=== PATIENT | female | born 1945 | race Caucasian/White ===

== ENCOUNTER 2017-08-06 07:17 | Day surgery (SDC) | payer MEDICARE ==
[2017-08-06] MEDS: LR 1,000 ML IV (07:57)
[2017-08-06] MEDS ORDERED: fentaNYL 100 MCG/2 ML INJECTION (J3010) As Ordered (08:47)
[2017-08-06] MEDS ORDERED: LIDOCAINE 2% INJ 100 MG/5 ML SDV (FOR ANES.) As Ordered (08:47)
[2017-08-06] MEDS ORDERED: MIDAZOLAM INJ 2 MG/2 ML VIAL (J2250) As Ordered (08:47)
[2017-08-06] MEDS ORDERED: PROPOFOL 200 MG/20 ML VIAL As Ordered (08:47)
[2017-08-06] MEDS ORDERED: ONDANSETRON 4MG/2ML VIAL (J2405) As Ordered (08:47)
[2017-08-06] MEDS: LIDOCAINE 2% MDV 20 ML VIAL As Ordered (08:50)
[2017-08-06] MEDS: BUPIVACAINE HCL 0.5% 30 ML VIAL As Ordered (08:50)
[2017-08-06] MEDS ORDERED: ePHEDrine SULFATE 25 MG/5 ML(5MG/ML) SYRINGE As Ordered (09:03)
[2017-08-06] MEDS: BACITRACIN PWD 50,000 UNITS VIAL As Ordered (09:21)
[2017-08-06] MEDS: NEOSPORIN GU IRRIG 20 ML VIAL As Ordered (09:23)
[2017-08-06] MEDS: dexameTHASONE 4 MG/ML 1ML VIAL (J1100) As Ordered (10:35)
== END 2017-08-06 11:26 | disposition home or self-care (01) ==
LOC: M SDC 07:17
DX: M20.22 Hallux rigidus, left foot (principal)
CPT/HCPCS: 28306

== ENCOUNTER 2018-01-14 07:19 | Day surgery (SDC) | payer MEDICARE ==
[~2018-01-14 07:19] MED LIST: LIDOCAINE 1% SDV 5 ML VIAL SQ
[2018-01-14] MEDS ORDERED: MIDAZOLAM INJ 2 MG/2 ML VIAL (J2250) As Ordered (07:54)
[2018-01-14] MEDS ORDERED: PROPOFOL 200 MG/20 ML VIAL As Ordered (07:54)
[2018-01-14] MEDS ORDERED: fentaNYL 100 MCG/2 ML INJECTION (J3010) As Ordered (07:54)
[2018-01-14] MEDS ORDERED: LIDOCAINE 2% INJ 100 MG/5 ML SDV (FOR ANES.) As Ordered (07:54)
[2018-01-14] MEDS ORDERED: ONDANSETRON 4MG/2ML VIAL (J2405) As Ordered (07:54)
[2018-01-14] MEDS: LR 1,000 ML IV (08:14)
[2018-01-14] MEDS: dexameTHASONE 4 MG/ML 1ML VIAL (J1100) As Ordered (09:00)
[2018-01-14] MEDS: BUPIVACAINE HCL 0.5% 30 ML VIAL As Ordered (09:00)
[2018-01-14] MEDS: LIDOCAINE 2% MDV 20 ML VIAL As Ordered (09:00)
[2018-01-14] MEDS ORDERED: ePHEDrine SULFATE 25 MG/5 ML(5MG/ML) SYRINGE As Ordered (09:12)
[2018-01-14] MEDS: NEOSPORIN GU IRRIG 20 ML VIAL As Ordered (09:22)
[2018-01-14] MEDS: BACITRACIN PWD 50,000 UNITS VIAL As Ordered (09:22)
[2018-01-14] MEDS ORDERED: ONDANSETRON 4MG/2ML VIAL (J2405) IV (10:45)
[2018-01-14] MEDS ORDERED: LR 1,000 ML IV (10:45)
[2018-01-14] MEDS ORDERED: fentaNYL 100 MCG/2 ML INJECTION (J3010) IV (10:45)
[2018-01-14] MEDS ORDERED: PERCOCET 5MG/325MG TAB PO (10:45)
== END 2018-01-14 11:00 | disposition home or self-care (01) ==
LOC: M SDC 07:19
DX: M20.11 Hallux valgus (acquired), right foot (principal); M25.774 Osteophyte, right foot; M85.471 Solitary bone cyst, right ankle and foot
CPT/HCPCS: 28296

== ENCOUNTER → 2020-03-24 | Outpatient (CLI) | payer MEDICARE ==
[~2020-03-24] MED LIST changes: +CALCTAB74 PO; -LIDOCAINE 1% SDV 5 ML VIAL SQ; +MULT1TAB10 PO; +MULT1TAB9 PO; +VITA100067 PO
== END ==
LOC: M LABSMTC 08:42
PROVIDERS: ATTEND Anesthesiology
DX: Z01.812 Encounter for preprocedural laboratory examination (principal); Z20.828 Contact with and (suspected) exposure to other viral communicable diseases
CPT/HCPCS: C9803; U0003

== ENCOUNTER 2020-03-29 08:53 | Day surgery (SDC) | payer MEDICARE ==
[~2020-03-29] VITALS: Ht 157.5 cm; Wt 48.5 kg
[~2020-03-29 08:53] MED LIST changes: +NS 1,000 ML IV ONE
[2020-03-29] MEDS ORDERED: propofoL 200 MG/20 ML VIAL As Ordered ONE (10:14)
[2020-03-29] MEDS ORDERED: LIDOCAINE 2% 100MG/5ML SDV (FOR ANES.) As Ordered ONE (10:14)
--- NOTE | 2020-03-29 10:26 | ROOR ---
Patient Name: Chanelle Mcclain Procedure Date: 03/29/2020 10:07 AM Date of : 1945 Age: 75 Room: [facility] Gender: Female Note Status: Finalized Procedure: Colonoscopy Indications: Screening for colorectal malignant neoplasm Providers: Lauro DAVIS MD Referring MD: Nancy Greco MD Requesting Provider: Medicines: Monitored Anesthesia Care Complications: No immediate complications. Procedure: Pre-Anesthesia Assessment: - The heart rate, respiratory rate, oxygen saturations, blood pressure, adequacy of pulmonary ventilation, and response to care were monitored throughout the procedure. The Colonoscope was introduced through the anus and advanced to the terminal ileum, with identification of the appendiceal orifice and IC valve. The colonoscopy was performed without difficulty. The patient tolerated the procedure well. The quality of the bowel preparation was good. Findings: The perianal and digital rectal examinations were normal. A diminutive polyp was found in the appendiceal orifice. The polyp was sessile. The polyp was removed with a jumbo cold forceps. Resection and retrieval were complete. Mild sigmoid diverticulosis and small internal hemorrhoids. The exam was otherwise without abnormality on direct and retroflexion views. Impression: - One diminutive polyp at the appendiceal orifice, removed with a jumbo cold forceps. Resected and retrieved. - Mild sigmoid diverticulosis and small internal hemorrhoids. - The examination was otherwise normal on direct and retroflexion views. Recommendation: - If the pathology report reveals adenomatous tissue, then repeat the colonoscopy for surveillance in 5 years. - Telephone endoscopist for pathology results in 2 weeks. Lauro Davis MD Lauro DAVIS MD 03/29/2020 10:25:51 AM Electronically signed by Lauro DAVIS MD Number of Addenda: 0 Note Initiated On: 03/29/2020 10:07 AM Estimated Blood Loss: Estimated blood loss: none.
[2020-03-29 11:00] VITALS: BP 149/73
== END 2020-03-29 11:10 | disposition home or self-care (01) ==
LOC: M OPP 08:53
PROVIDERS: ATTEND Internal Medicine Gastroenterology
DX: Z12.11 Encounter for screening for malignant neoplasm of colon (principal); K57.30 Diverticulosis of large intestine without perforation or abscess without bleeding; D12.1 Benign neoplasm of appendix; K64.8 Other hemorrhoids; R00.1 Bradycardia, unspecified

== ENCOUNTER → 2023-03-16 | Outpatient (CLI) | payer MEDICARE ==
[~2023-03-16] MED LIST changes: -NS 1,000 ML IV ONE
[2023-03-16 18:37] LABS: BASO # 0.1 10^3/uL (0.0-0.2); BASO % 0.8 % (0.0-1.0); EOS # 0.1 10^3/uL (0.0-0.5); EOS % 1.8 % (0.0-3.0); HEMATOCRIT 43.9 % (36.0-47.0); HEMOGLOBIN 14.6 g/dl (12.0-15.5); LYMPH # 1.9 10^3/uL (1.5-5.0); LYMPH % 25.1 % (24.0-44.0); MEAN CORPUSCULAR HEMOGLOBIN 31.6 pg (27.0-33.0); MEAN CORPUSCULAR HGB CONC 33.3 g/dl (32.0-36.5); MONO # 0.6 10^3/uL (0.0-0.8); MONO % 7.7 % (2.0-8.0); NEUTROPHILS # 4.7 10^3/uL (1.5-8.5); NEUTROPHILS % 64.2 % (36.0-66.0); PLATELET COUNT, AUTOMATED 339 10^3/uL (150-450); RED BLOOD COUNT 4.62 10^6/uL (4.00-5.40); WHITE BLOOD COUNT 7.4 10^3/uL (4.0-10.0)
[2023-03-16 18:41] LABS: ALBUMIN 3.4 G/DL (3.2-5.2); ALKALINE PHOSPHATASE 79 U/L (46-116); ALT/SGPT 21 U/L (7.0-40); AST/SGOT 25 U/L (<34); BILIRUBIN,TOTAL 0.4 MG/DL (0.3-1.2); BLOOD UREA NITROGEN 16 MG/DL (9-23); CALCIUM LEVEL 9.3 MG/DL (8.3-10.6); CARBON DIOXIDE LEVEL 31 MMOL/L (20-31); CHLORIDE LEVEL 105 MMOL/L (98-107); CREATININE FOR GFR 0.95 MG/DL (0.55-1.30); GLOMERULAR FILTRATION RATE > 60.0 (>39); GLUCOSE, FASTING 83 MG/DL (74-106); POTASSIUM SERUM 4.6 MMOL/L (3.5-5.1); SODIUM LEVEL 141 MMOL/L (136-145); TOTAL PROTEIN 6.7 G/DL (5.7-8.2)
[2023-03-16 19:16] LABS: ERYTHROCYTE SEDIMENTATION RATE 23 mm/hr (0-30)
== END ==
LOC: M PLALAB 16:27
PROVIDERS: ATTEND Student in an Organized Health Care Education/Training Program
DX: M17.11 Unilateral primary osteoarthritis, right knee (principal)

== ENCOUNTER → 2024-01-04 | Outpatient (REF) | payer MEDICARE | LOC: M SFHCDERM 13:32 | PROVIDERS: ATTEND Physician Assistant | DX: L82.0 Inflamed seborrheic keratosis (principal) ==